=== PATIENT | female | born 1960 | race Caucasian/White ===

== ENCOUNTER → 2024-12-04 | Day surgery (SDC) | payer OTHER ==
[~2024-12-04] MED LIST: DEXAMETHASONE SOD PHOS INJ 4 MG/ML SDV ONE; FENTANYL CITRATE/PF 100MCG/2 ML INJ ONE; LIDOCAINE HCL 2% LOCAL INJ 5 ML SDV VIAL INJ ONE; ONDANSETRON HCL INJ 2MG/ML 2ML 2 MG/ML VIAL ONE; PROPOFOL IV EMULSION 10 MG/ML 20 ML VIAL ONE; REQUIP PO; SEVOFLURANE INHAL SOLN 250 ML PEN BTL ONE; SUNOSI75 MG PO; ZOLOFT50 MG PO
[2024-12-04] MEDS: LACTATED RINGER'S 1,000 ML ONE (08:49)
[2024-12-04 12:10] VITALS: TEMP 97.2
[2024-12-04 12:50] VITALS: BP 158/88; PULSE 76; RESP 16; O2SAT 96
== END | disposition home or self-care (01) ==
LOC: OR 08:16
PROVIDERS: ATTEND Otolaryngology Otolaryngology/Facial Plastic Surgery
DX: H65.22 Chronic serous otitis media, left ear (principal); H90.72 Mixed conductive and sensorineural hearing loss, unilateral, left ear, with unrestricted hearing on the contralateral side; H93.A2 Pulsatile tinnitus, left ear; J32.0 Chronic maxillary sinusitis; H93.8X2 Other specified disorders of left ear; E66.9 Obesity, unspecified; F32.A Depression, unspecified; Z79.899 Other long term (current) drug therapy
CPT/HCPCS: 31237; 69436; 88305; 93005; J1100; J2003; J2405; J2704; J3010; J7121